=== PATIENT | female | born 1945 | race Caucasian/White ===

== ENCOUNTER → 2018-04-07 09:56 | Outpatient (CLI) | payer MEDICARE, OTHER, SELFPAY ==
[2018-04-07 12:30] LABS: Anion Gap 9 (5-15); BUN 13 mg/dL (7-18); BUN/Creat Ratio 15.9 RATIO (10-20); Chloride 107 mmol/L (98-107); Cholesterol 204 mg/dL (200); Creatinine, Serum 0.82 mg/dL (0.55-1.02); EST Glomerular Filtration Rate 73 mL/min (>60); Est Glom Filt Rate - Afr Amer 88 mL/min (>60); Glucose 80 mg/dL (74-106); High Density Lipoprotein 50 mg/dL; Potassium 4.2 mmol/L (3.5-5.1); Sodium Level 144 mmol/L (136-145); Triglycerides 165 mg/dL; Very Low Density Lipoprotein 33 mg/dL (5-40)
== END ==
PROVIDERS: Family Provider Family Medicine; PCP Family Medicine; Visit Provider Family Medicine
DX: I10 Essential (primary) hypertension (principal); E78.00 Pure hypercholesterolemia, unspecified
CPT/HCPCS: 36415; 80048; 80061

== ENCOUNTER → 2019-12-14 15:46 | Outpatient (CLI) | payer MEDICARE, OTHER, SELFPAY ==
[2019-12-14 17:43] LABS: Absolute Lymphocyte Count 2.31 X10^3/uL (0.83-4.51); Absolute Neutrophil Count 2.6 X10^3/uL (2.0-7.7); Basophil# 0.01 X10^3/uL; Basophil% 0.2 % (0-1); Eosinophil# 0.13 X10^3/uL; Eosinophils% 2.3 % (0-5); Hematocrit 42.4 % (37-47); Hemoglobin 14.1 g/dL (12.0-15.0); Lymphocyte # 2.31 X10^3/ul (4.0); Lymphocyte % 40.9 % (19-41); Mean Corp Hgb Conc 33.3 g/dL (32-36); Mean Corpuscular Hgb 30.8 pg (27.0-32.0); Mean Corpuscular Volume 92.6 fL (81-99); Mean Platelet Vol. 10.1 fl (6.2-12.0); Monocyte# 0.57 X10^3/uL; Monocyte% 10.1 % (0-10); NRBC Flagged by Analyzer 0 % (0-5); Neutrophil # 2.61 X10^3/uL (2.7-7.7); Neutrophil % 46.1 % (47-70); Platelet Count 228 K/mm3 (150-450); RBC Distribution Width CV 13.8 % (11.6-14.6); RBC Distribution Width SD 46.5 fl (35.1-43.9); Red Blood Count 4.58 M/mm3 (4.2-5.4); White Blood Count 5.7 K/mm3 (4.4-11.0)
[2019-12-14 18:18] LABS: Vitamin D,25 Hydroxy 75.6 ng/mL
[2019-12-14 18:28] LABS: ALB/GLOB Ratio 1.2 RATIO (0.9-2.4); AST(SGOT) 27 U/L (15-37); Alanine Aminotransfer ALT/SGPT 28 U/L (13-56); Alkaline Phosphatase 81 U/L (45-117); Anion Gap 5 (5-15); BUN 15 mg/dL (7-18); BUN/Creat Ratio 20.6 RATIO (10-20); Calcium,Total 9.4 mg/dL (8.5-10.1); Chloride 108 mmol/L (98-107); Cholesterol 224 mg/dL (200); Creatinine, Serum 0.73 mg/dL (0.55-1.02); EST Glomerular Filtration Rate 83 mL/min (>60); Est Glom Filt Rate - Afr Amer 101 mL/min (>60); Globulin 3.4 g/dL (2.2-4.2); Glucose 89 mg/dL (74-106); High Density Lipoprotein 41 mg/dL; Potassium 3.8 mmol/L (3.5-5.1); Protein, Total 7.4 g/dL (6.4-8.2); Sodium Level 141 mmol/L (136-145); Thyroid Stim Hormone (TSH) 1.41 uIU/mL (0.358-3.74); Triglycerides 307 mg/dL; Very Low Density Lipoprotein 61 mg/dL (5-40)
== END ==
PROVIDERS: PCP Family Medicine; Visit Provider Family Medicine
DX: I10 Essential (primary) hypertension (principal); E55.9 Vitamin D deficiency, unspecified; E78.00 Pure hypercholesterolemia, unspecified
CPT/HCPCS: 36415; 80053; 80061; 82306; 84443; 85025

== ENCOUNTER 2020-01-23 07:21 | Day surgery (SDC) | payer MEDICARE, OTHER, SELFPAY ==
[2020-01-22 12:57] LABS: Probe Check PASS; Specimen Processing Control PASS
[2020-01-23] VITALS (7 sets, daily range): BP systolic 121–147; BP diastolic 80–91; PULSE 67–74; RESP 16; TEMP 36.4–36.8; O2SAT 98–100; BMI 23.4
[2020-01-23] MEDS: Lactated Ringers 1,000 ML 100 ML IV (08:17)
--- NOTE | 2020-01-23 08:38 | PCM.HP.STD ---
Problem List (1) Screening for intestinal cancer Status: Acute History of Present Illness Date of Admission: 01/23/20 The patient is a 74 year old F who presents for screening colonoscopy. She has both a mother and a sister who had colon cancer. The patient herself is never previously had a colonoscopy. She denies bright red blood per rectum or melena. No abdominal pain. No weight loss. She claims that heart lungs are solid. Past Medical History Allergies No Known Allergies Allergy (Verified 01/22/20 12:47) Home Medications: Ambulatory Orders Medication Instructions Recorded Metoprolol Tartrate [Lopressor 50 mg PO BID 01/22/20 (Beta Sarah)] Smoking Status: Never smoker Tobacco Use: Non-smoker Review of Systems Constitutional: Denies: Anorexia, Chills, Fever HEENT: Denies: Difficulty Swallowing Cardiovascular: Denies: Chest Pain Respiratory: Denies: Cough Gastrointestinal: Denies: Abdominal Pain, Melena Endocrine: Denies: Change in Body Habitus VTE Information - Inpt Only VTE Present on Admission: No Patient Problems: Active and Suspected Problems Screening for intestinal cancer (Acute) - Physical Exam Vitals/I&O's: Vital Signs Temp Pulse Resp BP Pulse Ox 98.3 F 67 16 147/89 H 98 01/23/20 08:08 01/23/20 08:08 01/23/20 08:08 01/23/20 08:08 01/23/20 08:08 Oxygen Delivery Method Room Air Weight: 132 lb 4.438 oz Body Mass Index (BMI) 23.4 General: Alert, Oriented x3, Cooperative, No apparent distress Oral: Moist Mucosa Lungs: Clear to auscultation, Normal air movement Cardiovascular: Regular rate, Regular Rhythm Abdomen: Bowel Sounds Present, Soft, Non Tender Extremities: No Calf Tenderness Neurological: - - Normal cognition Psych/Mental Status: Normal Affect Laboratory Results 01/22/20 09:55: COVID-19 (BERENICE) Negative 01/23/20 08:55: COVID-19 (BERENICE) Cancelled Current Medications Lactated Ringer's () 1,000 mls @ 100 mls/hr IV .Q10H RICKI Last Admin: 01/23/20 08:17 Dose: 100 mls/hr Documented by: Assessment/Plan All Active Problems Screening for intestinal cancer (Acute) I recommended the patient a screening colonoscopy with possible biopsy or polypectomy is indicated. She has had an opportunity to ask and have questions answered. She presents via open access today. As noted she has no previous history of colonoscopy despite 2 direct family members with colon cancer. She presents via open access. We will proceed as noted Procedure Criteria Procedure Type: Elective COVID Risk Discussion: The surgeon/proceduralist and patient have discussed in detail the risk of exposure to and/or potential harm posed by the COVID-19 virus with having a surgery/procedure at this time versus the risk of delaying the surgery/procedure. It is not possible to know either the risk of delaying the surgery or procedure or chance of getting an infection with perfect accuracy, but a joint decision was made between the patient and the surgeon/proceduralist to proceed at this time with the scheduled surgery/procedure as indicated on the consent form.
--- NOTE | 2020-01-23 09:38 | OP.COLON_ITS ---
Patient Name: Rosaura Porter Procedure Date: 01/23/2020 8:32 AM Date of : 1945 Age: 74 Procedure: Colonoscopy Indications: Screening for colorectal malignant neoplasm Providers: Ty Rajan MD Medicines: See the Anesthesia note for documentation of the administered medications Patient Profile: Last Colonoscopy: none. The patient's first colonoscopy is today. Complications: No immediate complications. Procedure: Pre-Anesthesia Assessment: - Prior to the procedure, a History and Physical was performed, and patient medications and allergies were reviewed. The patient's tolerance of previous anesthesia was also reviewed. The risks and benefits of the procedure and the sedation options and risks were discussed with the patient. All questions were answered, and informed consent was obtained. Prior Anticoagulants: The patient has taken no previous anticoagulant or antiplatelet agents. ASA Grade Assessment: II - A patient with mild systemic disease. After reviewing the risks and benefits, the patient was deemed in satisfactory condition to undergo the procedure. After I obtained informed consent, the scope was passed under direct vision. Throughout the procedure, the patient's blood pressure, pulse, and oxygen saturations were monitored continuously. The Colonoscope was introduced through the anus and advanced to the cecum, identified by appendiceal orifice and ileocecal valve. The colonoscopy was performed without difficulty. The patient tolerated the procedure well. The quality of the bowel preparation was good. The ileocecal valve was photographed. Scope In: 9:19:44 AM Scope Withdrawal Time 0 hours 7 minutes 23 seconds Scope Out: 9:30:08 AM Total Procedure Duration Time 0 hours 10 minutes 24 seconds Findings: The digital rectal exam findings include non-thrombosed internal hemorrhoids and internal hemorrhoids that prolapse with straining, but require manual replacement into the anal canal (Grade III). Hemorrhoids were found on perianal exam. Scattered diverticula were found in the sigmoid colon and descending colon. The exam was otherwise without abnormality. Impression: - Non-thrombosed internal hemorrhoids and internal hemorrhoids that prolapse with straining, but require manual replacement into the anal canal (Grade III) found on digital rectal exam. - External hemorrhoids found on perianal exam. - Diverticulosis in the sigmoid colon and in the descending colon. - The examination was otherwise normal. - No specimens collected. Recommendation: - Discharge patient to home. - Resume previous diet. - Continue present medications. - Repeat colonoscopy in 5 years for surveillance because of mother and sister who both had colon cancer Procedure Code(s): --- Professional --- 07673, Colonoscopy, flexible; diagnostic, including collection of specimen(s) by brushing or washing, when performed (separate procedure) Diagnosis Code(s): --- Professional --- Z12.11, Encounter for screening for malignant neoplasm of colon K64.2, Third degree hemorrhoids K57.30, Diverticulosis of large intestine without perforation or abscess without bleeding CPT copyright 2017 [employer]. All rights reserved. The codes documented in this report are preliminary and upon auditing coder review may be revised to meet current compliance requirements. Ty Rajan MD 01/23/2020 9:37:27 AM This report has been signed electronically. Number of Addenda: 0 Note Initiated On: 01/23/2020 8:32 AM
--- NOTE | 2020-01-23 09:38 | OP.CCLET_ITS ---
01/23/2020 Catracho Dean [address] [place] [address] Re : Colonoscopy procedure for Rosaura Porter Dear Dr. Dean This procedure was performed on Thursday, January 23, 2020. My impressions and recommendations are as follows: Impressions : - Non-thrombosed internal hemorrhoids and internal hemorrhoids that prolapse with straining, but require manual replacement into the anal canal (Grade III) found on digital rectal exam. - External hemorrhoids found on perianal exam. - Diverticulosis in the sigmoid colon and in the descending colon. - The examination was otherwise normal. - No specimens collected. Recommendations : - Discharge patient to home. - Resume previous diet. - Continue present medications. - Repeat colonoscopy in 5 years for surveillance because of mother and sister who both had colon cancer My findings are described in the full procedure note, which is enclosed. If I can be of further assistance, please feel free to contact me at Doctor phone number(s): Work: . Sincerely, Ty Rajan MD 01/23/2020 9:37:27 AM This report has been signed electronically.
== END 2020-01-23 10:17 | disposition home or self-care (01) ==
LOC: EN 07:23 → AC 07:25
PROVIDERS: Physician Assistant; PCP Family Medicine; Referring Provider Family Medicine; Visit Provider Surgery
PROC: 0DJD8ZZ Inspection of Lower Intestinal Tract, Via Natural or Artificial Opening Endoscopic (ICD-10-PCS; CPT 45378; principal; 2020-01-23 08:55)
DX: Z12.11 Encounter for screening for malignant neoplasm of colon (principal); K57.30 Diverticulosis of large intestine without perforation or abscess without bleeding; K64.2 Third degree hemorrhoids; K64.4 Residual hemorrhoidal skin tags; Z80.0 Family history of malignant neoplasm of digestive organs; Z11.59 Encounter for screening for other viral diseases; I10 Essential (primary) hypertension; Z78.0 Asymptomatic menopausal state; Z79.899 Other long term (current) drug therapy
CPT/HCPCS: G0105; 87635; G2023; J7120; J2405; U0003

== ENCOUNTER 2020-02-13 08:44 | Day surgery (SDC) | payer MEDICARE, OTHER, SELFPAY ==
[2020-01-31 08:32] VITALS: BMI 23.4
--- NOTE | 2020-02-08 15:13 | EKG12_ITS ---
Test Reason : PRE OP Blood Pressure : / mmHG Vent. Rate : 073 BPM Atrial Rate : 073 BPM P-R Int : 208 ms QRS Dur : 074 ms QT Int : 388 ms P-R-T Axes : 049 -07 018 degrees QTc Int : 427 ms Normal sinus rhythm Nonspecific T wave abnormality Abnormal ECG Confirmed by NAKUL CONDE ([id number]), industrial editor NAVIN DEMPSEY ([id number]) on 02/12/2020 2:09:26 PM Referred By: Ty Rajan Confirmed By:NAKUL CONDE
[2020-02-08 16:05] LABS: Hematocrit 41.1 % (37-47); Hemoglobin 13.7 g/dL (12.0-15.0); Mean Corp Hgb Conc 33.3 g/dL (32-36); Mean Corpuscular Hgb 30.8 pg (27.0-32.0); Mean Corpuscular Volume 92.4 fL (81-99); Mean Platelet Vol. 9.9 fl (6.2-12.0); Platelet Count 215 K/mm3 (150-450); RBC Distribution Width CV 13.7 % (11.6-14.6); RBC Distribution Width SD 46.3 fl (35.1-43.9); Red Blood Count 4.45 M/mm3 (4.2-5.4); White Blood Count 5.4 K/mm3 (4.4-11.0)
[2020-02-08 16:54] LABS: Anion Gap 7 (5-15); BUN 16 mg/dL (7-18); Calcium,Total 8.6 mg/dL (8.5-10.1); Chloride 108 mmol/L (98-107); Creatinine, Serum 0.76 mg/dL (0.55-1.02); EST Glomerular Filtration Rate 79 mL/min (>60); Est Glom Filt Rate - Afr Amer 96 mL/min (>60); Glucose 80 mg/dL (74-106); Potassium 3.9 mmol/L (3.5-5.1); Sodium Level 143 mmol/L (136-145)
[2020-02-13] VITALS (13 sets, daily range): BP systolic 108–185; BP diastolic 74–109; PULSE 58–89; RESP 14–16; TEMP 36.2–36.9; O2SAT 97–100; BMI 23.1
[2020-02-13] MEDS: Lactated Ringers 1,000 ML 15 ML IV ×2 (09:28→12:41)
--- NOTE | 2020-02-13 10:14 | PCM.HP.BLA ---
Problem List (1) Internal bleeding hemorrhoids Status: Acute History and Physical Date of Admission: 02/13/20 Intake Visit Reasons: HEMORRHOIDS Chief Complaint: Hemorrhoids Fashion Supervisor Required: No Accompanied by: Is patient in pain?: No Allergies No Known Allergies Allergy (Verified 01/31/20 08:24) Medications Metoprolol Tartrate [Lopressor (Beta Sarah)] 50 mg PO BID 01/22/20 [History Confirmed 01/31/20] cholecalciferol (vitamin D3) 125 mcg (5,000 unit) capsule 125 mcg PO DAILY 01/31/20 [History Confirmed 01/31/20] fluticasone propionate 50 mcg/actuation nasal spray,suspension 1 spray INTRANASAL BID 01/31/20 [History Confirmed 01/31/20] glucosamine 750 mg-chondroitin 600 mg chewable tablet 2 tab PO BID tab 01/31/20 [History Confirmed 01/31/20] loratadine 10 mg tablet 10 mg PO DAILY 01/31/20 [History Confirmed 01/31/20] psyllium husk 0.4 gram capsule 0.4 g PO DAILY 01/31/20 [History Confirmed 01/31/20] PFSH Medical History (Updated 01/31/20 @ 08:[address] Ty Rajan MD) Internal bleeding hemorrhoids (Acute) Screening for intestinal cancer (Acute) Hemorrhoids (Acute) Surgical History (Updated 01/31/20 @ 08:21 by Melissa Contreras) History of arthroscopy of left knee (Acute) History of tubal ligation (Acute) Family History (Updated 01/31/20 @ 08:22 by Melissa Contreras) Mother Colon cancer Cancer lung cancer Hypertension High cholesterol Father Diabetes Hypertension CVA (cerebral vascular accident) Social History (Updated 01/31/20 @ 08:[address] Ty Rajan MD) Smoking Status: Never smoker alcohol intake: never substance use type: does not use HPI HPI HPI: ROSAURA FULLER, is a 74 F who presents to the office today for who presents today for further discussion regarding prolapsing and bleeding internal hemorrhoids. It is of note that her says that I have assisted him over the years with 2 different procedures. The second procedure was stimulated by him lifting a heavy object and then thrombosing and prolapsing hemorrhoid. In any case he felt that he did well with the surgical procedure. She is claiming that she will have tissue prolapse. She will have bleeding. She can never be quite sure when it is going to occur. She has not had any previous surgical hemorrhoid procedures. I have just recently performed a colonoscopy for her on January 23, 2020. Findings were diverticulosis and hemorrhoids. Next routine exam recommended in 5 years because of mother and sister both who had colon cancer. [facility] Medical Records Department [address] [place] [address] Colonoscopy Report MR#: [id number]:[id number] Name:ROSAURA FULLER LEERep #:[id number] : [id number]: Ty Rajan MD PCP:Dr. Catracho Dean MD [place] [facility] [place] Patient Name: Rosaura Fuller Procedure Date: 01/23/2020 8:32 AM Date of : 1945 Age: 74 Procedure: Colonoscopy Indications: Screening for colorectal malignant neoplasm Providers: Ty Rajan MD Medicines: See the Anesthesia note for documentation of the administered medications Patient Profile: Last Colonoscopy: none. The patient's first colonoscopy is today. Complications: No immediate complications. Procedure: Pre-Anesthesia Assessment: - Prior to the procedure, a History and Physical was performed, and patient medications and allergies were reviewed. The patient's tolerance of previous anesthesia was also reviewed. The risks and benefits of the procedure and the sedation options and risks were discussed with the patient. All questions were answered, and informed consent was obtained. Prior Anticoagulants: The patient has taken no previous anticoagulant or antiplatelet agents. ASA Grade Assessment: II - A patient with mild systemic disease. After reviewing the risks and benefits, the patient was deemed in satisfactory condition to undergo the procedure. After I obtained informed consent, the scope was passed under direct vision. Throughout the procedure, the patient's blood pressure, pulse, and oxygen saturations were monitored continuously. The Colonoscope was introduced through the anus and advanced to the cecum, identified by appendiceal orifice and ileocecal valve. The colonoscopy was performed without difficulty. The patient tolerated the procedure well. The quality of the bowel preparation was good. The ileocecal valve was photographed. Scope In: 9:19:44 AM Scope Withdrawal Time 0 hours 7 minutes 23 seconds Scope Out: 9:30:08 AM Total Procedure Duration Time 0 hours 10 minutes 24 seconds Findings: The digital rectal exam findings include non-thrombosed internal hemorrhoids and internal hemorrhoids that prolapse with straining, but require manual replacement into the anal canal (Grade III). Hemorrhoids were found on perianal exam. Scattered diverticula were found in the sigmoid colon and descending colon. The exam was otherwise without abnormality. Impression: - Non-thrombosed internal hemorrhoids and internal hemorrhoids that prolapse with straining, but require manual replacement into the anal canal (Grade III) found on digital rectal exam. - External hemorrhoids found on perianal exam. - Diverticulosis in the sigmoid colon and in the descending colon. - The examination was otherwise normal. - No specimens collected. Recommendation: - Discharge patient to home. - Resume previous diet. - Continue present medications. - Repeat colonoscopy in 5 years for surveillance because of mother and sister who both had colon cancer Procedure Code(s): --- Professional --- 76542, Colonoscopy, flexible; diagnostic, including collection of specimen(s) by brushing or washing, when performed (separate procedure) Diagnosis Code(s): --- Professional --- Z12.11, Encounter for screening for malignant neoplasm of colon K64.2, Third degree hemorrhoids K57.30, Diverticulosis of large intestine without perforation or abscess without bleeding CPT copyright 2017 [employer]. All rights reserved. The codes documented in this report are preliminary and upon link and link knitting machine operator review may be revised to meet current compliance requirements. Ty Rajan MD 01/23/2020 9:37:27 AM This report has been signed electronically. Number of Addenda: 0 Note Initiated On: 01/23/2020 8:32 AM 01/23/20 0937 Date HPI HPI HPI: ROSAURA FULLER, is a 74 F who presents to the office today for ROS General General: No weight change, appetite, fatigue, colon cancer, breast cancer or weakness HEENT HEENT: No difficulty swallowing, eye injury, eye surgery, swollen glands or hoarseness Endo Endocrine: No thyroid disease, diabetes mellitus, thyroid cancer, Hair loss, heat intolerance or cold intolerance Skin Skin: No rash or changing moles Breast Breast: No left breast lump, right breast lump, nipple discharge, breast pain, abnormal mammogram, abnormal US or breast enlargement Musc Musculoskeletal: No back problems, arthritis, rheumatoid arthritis, gout or joint pain Cardio Cardiovascular: No murmur, pacemaker, heart disease, atrial fibrillation, high blood pressure, heart attack, heart stent, palpitations, shortness of breat with exertion or chest pain Psych Psychiatric: No depression, anxiety or hearing voices Resp Respiratory: No shortness of breath, No sleep apnea, No cough, No COPD, No asthma, No emphysema, No wheezing Gastro Gastrointestinal: No abdominal pain, No nausea or vomiting, No diarrhea, No constipation, No blood in stool, No acid reflux, Yes hemorrhoids, No ulcers, No gallbladder problem, No black,tarry stools Dominik Hematologic: No blood thinners, No blood disorders, No bleeding, No anemia, No blood clots Neuro Neurologic: No system reviewed and no additional complaints, except as docu, No as per HPI, No abnormal walking, No abnormal hearing, No abnormal movements, No abnormal speech, No behavioral changes, No burning sensations, No confusion, No seizure-like activity, No unsteadiness, No dizziness, No localized weakness, No frequent falls, No headache(s), No lack of coordination, No loss of vision, No memory loss, No numbness, No other visual disturbances, No radiating pain, No restless legs, No sensory deficit, No fainting, No tingling, No tremor(s), No weakness, No other Exam Const General: cooperative, healthy appearing, comfortable, no acute distress Nutritional Appearance: average body habitus Orientation: alert, awake [facility] Head: normal to inspection Chest Breast Palpation: No nipple discharge Resp Effort & Inspection: normal respiratory effort Auscultation: clear to auscultation bilaterally Cardio Rate: regular rate Heart Sounds: no murmurs GI Palpation: soft, no hepatosplenomegaly Auscultation: normal bowel sounds Neuro Cognition: normal cognition Extrem General: no calf tenderness Psych Affect: normal affect Assessment & Plan Problems 1. Internal bleeding hemorrhoids K64.8 Plan We had an extensive discussion today regarding treatment options for prolapsing bleeding internal hemorrhoids. I extensively discussed particularly benefits risk complications alternatives of a surgical hemorrhoidectomy compared and contrasted to a staple technique. She has had an opportunity to ask and have questions answered. She has been taking Metamucil for 30 years. At the completion of the discussion she has elected to pursue a surgical hemorrhoidectomy. She has had an opportunity to ask and have questions answered. We will schedule and proceed at her discretion. Ty Rajan M.D., F.A.C.S. Coding Level of Care Code Off vis,est,level 2 Diagnoses Internal bleeding hemorrhoids K64.8 I have re-examined the patient. There are no clinical changes since date of exam. Procedure Criteria Procedure Type: Elective COVID Risk Discussion: The surgeon/proceduralist and patient have discussed in detail the risk of exposure to and/or potential harm posed by the COVID-19 virus with having a surgery/procedure at this time versus the risk of delaying the surgery/procedure. It is not possible to know either the risk of delaying the surgery or procedure or chance of getting an infection with perfect accuracy, but a joint decision was made between the patient and the surgeon/proceduralist to proceed at this time with the scheduled surgery/procedure as indicated on the consent form.
--- NOTE | 2020-02-13 10:36 | DCINST_ITS ---
Discharge Diet: No Restrictions Discharge Activity: Return to Normal Activity, May Not Drive - while you are taking narcotic pain medications. Do not drive, work with heavy equipment or sign legal documents for 24 hours after your surgery. Additional Activity Instructions:: You may utilize a daily fiber supplement in the form of Metamucil or Citrucel or FiberCon or Benefiber. I believe that the powder works better than the capsules. A large tablespoon in with fluid or juice daily. This needs to be continued for life. You may utilize mineral oil 30 cc or 1 ounce mixed in juice or food daily for 5 to 7 days. [id number] pain medicine in the form of Tylenol or acetaminophen or ibuprofen or Advil or Aleve or generic is encouraged. A small prescription of her narcotic pill will be provided. I would not eat any constipating foods like cheese. I encourage good fluid intake. You will find that sitz baths sitting at a warm tub of soapy water helps for comfort. It will also help with hygiene after any bowel movement. You may utilize a female hygiene pad for any mucus or bloody drainage. Allergies/Adverse Reactions: Allergies No Known Allergies Allergy (Verified 02/05/20 09:05) Medications to take at Discharge Metoprolol Tartrate [Lopressor (Beta Sarah)] 50 mg PO BID 01/22/20 cholecalciferol (vitamin D3) 125 mcg (5,000 unit) capsule 125 mcg PO DAILY 01/31/20 fluticasone propionate 50 mcg/actuation nasal spray,suspension 1 spray INTRANASAL BID 01/31/20 glucosamine 750 mg-chondroitin 600 mg chewable tablet 2 tab PO BID tab 01/31/20 loratadine 10 mg tablet 10 mg PO DAILY 01/31/20 psyllium husk 0.4 gram capsule 0.4 g PO DAILY 01/31/20 Orders to be completed after discharge: 12 Lead EKG [[facility]] Time Frame: 02/05/20, Facility: [facility], Location: Cardiovascular Services Primary Care Physician: Catracho Dean MD [Primary Care Provider] - Test Results: Test results from this visit will be discussed in further detail at your follow- up appointment, if applicable. Please Follow Up With: Ty Rajan MD - [phone] When: Plan to have a follow up approximately 3 weeks after surgery.
[2020-02-13] MEDS: Lubricating Jelly 60 GM Tube 30 GM TOPICAL (10:50)
--- NOTE | 2020-02-13 11:00 | HEM_PTH ---
PATIENT: LEON FULLER [place] [facility] [place][id number] AGE/SX: 74/F ROOM: RE02/13/[address]: Dr. Ty Rajan MD : 1945 BED: DIS: 02/13/2020 SPEC #: [id number] RECD: 02/13/20 12:25 STATUS: NIC RETrinidad #: [id number] GURJIT: 02/13/20 11:[address]: Ty Rajan DEPT: SURGICAL PATHOLOGY RECD BY: Erik Varela ENTERED: 02/14/20 09:12 SP TYPE: HEMORRHOID OTHR DR: Dr. Catracho Dean MD Tissues: HEMORRHOIDS Procedures: Surgery Specimen Level III HEADER OPERATION: Hemorrhoidectomy PRE-OP DIAGNOSIS: Internal bleeding hemorrhoids TISSUE SUBMITTED: Hemorrhoids MICROSCOPIC DIAGNOSIS Hemorrhoids, hemorrhoidectomy: Submucosal vascular ectasia and thrombosis consistent with hemorrhoids. AM:bridgette 02/15/20 MICROSCOPIC DESCRIPTION Slides are reviewed. GROSS DESCRIPTION Received in fixative is one container labeled with the patient's name and designated hemorrhoids. The specimen consists of three variable sized pieces of congested, mucosal tissue measuring in aggregate 4 x 3 x 1.5 cm. Sections reveal congested and hemorrhagic cut surfaces. Sketch Liner sections are submitted in one cassette. / SJ:bridgette 02/14/20 TC:5 CPT: 45888
[2020-02-13] MEDS: Dibucaine 30 GM Tube 1 APPLIC (11:21)
[2020-02-13] MEDS: Bupivacaine Mpf 0.5% 30 ML VIAL (11:25)
[2020-02-13] MEDS: BUPIVACAINE LIPOSOME/PF 20 ML VIAL OPERA.SITE (11:25)
--- NOTE | 2020-02-13 11:31 | OP.PCM_ITS ---
Problem List (1) Internal bleeding hemorrhoids Status: Acute Report of Operation Date of Procedure: 02/13/20 Pre-Operative Diagnosis: Prolapsing bleeding internal hemorrhoids Post-Operative Diagnosis: Same Surgery/Procedure Performed:: Complex surgical hemorrhoidectomy Description of Surgical Findings:: Timeout and informed consent was obtained. 74-year-old female was taken to the operating room and placed supine on the table. She underwent general endotracheal intubation anesthesia. She was then placed prone jackknife with careful shoulder and pelvic roll. Clindamycin 900 mg were given intravenously. Placed in a jackknife position with careful knee padding. Buttock strapping was performed. The perineum were sterilely prepped draped with Betadine. Inspection revealed to significant stalks of hemorrhoids right 2 o'clock position right 4 o'clock position and additional on the left at the 9 o'clock position. Started at right 2 o'clock position placed the apical suture of 2-0 chromic Mr. sharp scalpel to excise the external component using a moderate scalpel to complete the dissection. Great care was taken to inspect for the sphincter mechanism and preserve it. Then approximated the mucosa with a running locking 2-0 chromic. I reinforced the apical suture with a yjcbah-[id number]-vczqx suture of 0 Vicryl. I performed this for the additional 2 sets of hemorrhoids. There was an additional tissue right mid lateral internally and simply treated that with harmonic scalpel and a uitqdo-qu-kyebj suture of 2-0 chromic. [place] that I had remove the vast majority of the hemorrhoidal disease. The perianal tissue was anesthetized with Exparel 20 cc mixed with 30 cc of 0.5% Marcaine. I then use dibucaine soaked ointment on a Vaseline gauze inserted back. Dry cover dressing. Sponge and instrument and needle counts were reported to the surgeon to be correct. Blood loss minimal. Specimens hemorrhoids. Drains none. Blood loss minimal. The patient was taken to the recovery room in satisfactory vision without apparent complication Ty Rajan M.D., F.A.C.S. Type of Anesthesia:: General Anesthesiologist: Mookie Perez
[2020-02-13] MEDS: Acetaminophen 325 MG Tablet 650 MG PO (16:02)
[2020-02-13] MEDS: Tamsulosin HCl 0.4 MG Capsule PO (16:17)
== END 2020-02-13 17:15 | disposition home or self-care (01) ==
LOC: SDC 08:44 → AC 08:45
PROVIDERS: Anesthesiology; PCP Family Medicine; Referring Provider Surgery; Visit Provider Surgery
PROC: (CPT 46260; principal; 2020-02-13 10:45)
DX: K64.2 Third degree hemorrhoids (principal); Z11.59 Encounter for screening for other viral diseases; K64.4 Residual hemorrhoidal skin tags; Z79.899 Other long term (current) drug therapy; K57.30 Diverticulosis of large intestine without perforation or abscess without bleeding; Z80.0 Family history of malignant neoplasm of digestive organs; I10 Essential (primary) hypertension
CPT/HCPCS: 00902; 46260; 36415; 80048; 85027; 87635; 88304; 93005; G2023; J7120; J2405; U0003

== ENCOUNTER 2020-11-24 15:26 | Emergency (ER) | payer MEDICARE, OTHER, SELFPAY ==
[2020-02-13 09:07] VITALS: BMI 23.1
[2020-11-24 15:26] VITALS: BP 155/94; PULSE 84; RESP 15; TEMP 37; O2SAT 98; BMI 24.2
--- NOTE | 2020-11-24 15:37 | ED.VIS.INJ ---
History of Present Illness Chief Complaint: Fall Informant: Patient, Family Onset: Today - JPTA Mechanism/Context: Blunt Injury, Fall Quality of Pain: Aching Location: left shoulder Current Severity: Moderate Maximum Severity: Severe Worsened by: any movement Relieved by: remaining still in position of comfort LUE Associated Symptoms: Loss of function - LUE. Negative for: Parasthesias, Weakness, Inability to ambulate, Loss of consciousness, Amnesia Narrative: Patient was on a stepstool and accidentally fell off, stating that she injured her left upper extremity mostly at the elbow with immediate pain in the shoulder and loss of function of the arm. She states it hurts everywhere in her shoulder and she cannot move it at all. She is right-hand dominant. She bumped her right forehead but no other injuries and no pain there at her forehead. Takes no antiplatelet or anticoagulant medications. No headache, focal neurologic symptoms, vision changes, neck or back pain. - Past Medical History (1) Hypertension Status: Chronic Past Medical History - Allergies and Home Meds Allergies/Adverse Reactions: Allergies No Known Allergies Allergy (Verified 11/24/20 15:30) Primary Care Physician: Jaden Monroy DO [STAFF PHYSICIAN] - (Call for appointment to be seen this week) Lives: Spouse/ Significant Other Smoking Status: Never smoker Review of Systems General: Denies: Chills, Fever, Sweats Eyes: Denies: Visual changes - bilaterally, Diplopia ENT: Denies: Rhinorrhea, Sore throat Cardiovascular: Denies: Chest pain, Palpitations Respiratory: Denies: Dyspnea, Cough, Dyspnea on exertion Gastrointestinal: Denies: Abdominal pain, Nausea, Vomiting, Diarrhea, Melena, Hematochezia Genitourinary: Denies: Dysuria, Hematuria, Frequency Musculoskeletal: Reports: Extremity Pain. Denies: Neck pain, Back pain, Swelling Skin: Denies: Rash, Wounds Neurological: Denies: Headache, Weakness, Numbness Physical Exam Vital Signs/Narrative: Vital Signs Temp Pulse Resp BP Pulse Ox 11/24/20 15:26 98.6 F 84 15 155/94 H 98 Inital Vital Signs reviewed: Yes General: Well nourished, Well developed, - - Well-appearing no distress GCS 15 Head: Normocephalic, Trauma - Small minor contusion right forehead, nontender, no crepitance or depression, no hematoma Eyes: Perrl, EOMI ENT: TM's clear, No hemotympanum or drainage, No trauma. Negative for: Otorrhea, Nasal trauma Neck: Nontender, Full ROM Cardiovascular: Regular rate, Regular rhythm, No murmurs Respiratory: No distress, CTA bilaterally, Chest nontender Abdomen: Soft, Nontender, Nondistended, Normal bowel sounds Back: Nontender. Negative for: Spinal Tenderness Extremeties: Left shoulder is swollen versus deformed anteriorly. Holding in position of comfort, abducted, unable to move anywhere. Neurovascularly intact distally including axillary nerve distribution. Nontender at the elbow and wrist, where she is able to range okay. Skin: Normal color, No rash, Trauma - Minor contusion right upper forehead, skin intact there and left upper extremity Neurological: Alert, Oriented x3, Cranial nerves II-XII grossly intact, Normal Strength, Normal Sensation, Normal Gait Psychological: Normal affect, Normal Mood Diagnostic/Tx/Re-eval Clinical Impression(s) from Imaging Studies Shoulder X-Ray 11/24/20 15:40 FINDINGS: There is a presumed impacted fracture of the humeral head/neck. However it is not well seen due to overlap between multiple bones in all projections. Glenohumeral joint is located. Clavicle and AC joint are normal. RAD/Shoulder min 2 Views IMPRESSION: Presumed humeral head/neck fracture. Recommend additional views for more definitive evaluation especially if definitive therapy is contemplated. Electronically Signed: Lea Morse MD at 15:53 EDT Tel , Service support , - Medical Decision Making My interpretation 3 view x-ray series of the left shoulder shows a displaced fracture at approximately the surgical neck of the left proximal humerus without dislocation of the humeral head. Patient was given [place], placed in a sling, referred to orthopedics as an outpatient, she lives with her spouse and has help and she is comfortable with that plan. Her bruise to the scalp/forehead is very minor and I do not think she needs any imaging of her head, we discussed reasons to return. Advised to ice her shoulder. ED Disposition - Plan for ED Patient: Disposition: Home or Assisted Living Diagnosis: Closed fracture of proximal end of left humerus Instructions: ED Fracture, Shoulder Prescriptions: Hydrocodone Bitart/Apap 5-325 [[place] 5MG-325MG] 1 tablet PO Q4H PRN PRN 2 Days #10 tab PRN Reason: Pain Transmission Status: Received by [id number] Referrals: Jaden Monroy DO [STAFF PHYSICIAN] - (Call for appointment to be seen this week)
--- NOTE | 2020-11-24 15:40 | RAD_ITS ---
STUDY: X-RAY - LEFT SHOULDER REASON FOR EXAM: Female, 75 years old. injury TECHNIQUE: 3 view(s) of the shoulder. COMPARISON: None. FINDINGS: There is a presumed impacted fracture of the humeral head/neck. However it is not well seen due to overlap between multiple bones in all projections. Glenohumeral joint is located. Clavicle and AC joint are normal. RAD/Shoulder min 2 Views IMPRESSION: Presumed humeral head/neck fracture. Recommend additional views for more definitive evaluation especially if definitive therapy is contemplated. Electronically Signed: Lea Morse MD at 15:53 EDT Tel , Service support ,
[2020-11-24 15:54] VITALS: RESP 15
[2020-11-24] MEDS: HYDROcodone Bitartrate/Apap 5/325 Tablet PO (15:56)
== END 2020-11-24 16:04 | disposition home or self-care (01) ==
LOC: ED 15:55
PROVIDERS: Emergency Provider Emergency Medicine; PCP Family Medicine
DX: S42.202A Unspecified fracture of upper end of left humerus, initial encounter for closed fracture (principal); W17.89XA Other fall from one level to another, initial encounter
CPT/HCPCS: 73030; 99283

== ENCOUNTER 2021-01-15 15:00 | Outpatient (RCR) | payer MEDICARE, OTHER, SELFPAY ==
[2020-12-11 12:54] VITALS: BMI 24.2
--- NOTE | 2021-01-07 16:35 | HP.PTEVAL_ITS ---
Patient's Visit Information LEON FULLER is a 75 year old F referred to Physical Therapy by Dr. Jaden Monroy DO with a diagnosis of L shoulder fracture 11/22/20. Date of Evaluation: 01/07/21 Physical Therapist: Khai Martinez, PT, ATC - Visit Plan Frequency: 2-3x /Week Duration: 4-6 Weeks Plan: L shoulder ROM exercises for 4 weeks to include PROM/AROM and mobs, then progress to strengthening at that time to include rot cuff strengthening and scap stab ex's. - Subjective DOI: 11/24/20. Pt reports she was standing on a step stool when she fell off landing on Her L UE. Pt reports she fractured her L shoulder in 2 places. Pt reports she was placed into a sling for the past 5 weeks and has just started to not wear one. Pt reports she feels like the bone is healed now, but she feels weak and stiff in L UE. Pt reports she has difficulty sleeping at night secondary to pain. No tingling or numbness in L UE. Pt reports she is R hand dominant. Pt reports difficulty with overhead lifting activity and most IADL's secondary to pain and stiffness. 1/10 pain at rest, 8/10 at worst (just doing house chores) - Pain L shoulder Fx Pain Intensity (Out of 10): 1 Pain Intensity Range: 8 - Objective Neuro: B UE sensation is WNL to light touch. B bicepital reflex= 2/3. ROM: R shoulder flex= 170, abd= 160, ER= 65, IR WNL; L shoulder flex= 90, abd= 65, ER= 45, IR WNL. MMT: L shoulder is 2-/5, and R shoulder is 5/5 throughout. Observation: No obvious deformity at this time. Discoloration is gone. - Goals Goal 1:: Decrease L shoulder pain x 50% to aid with sleep Goal Time Frame: 4-6 Weeks Goal 2:: Increase L shoulder flex and abd ROM x 40 degrees to aid with overhead lifting Goal Time Frame: 4-6 Weeks Goal 3:: Increase L shoulder strength x 1 grade to aid with IADL's Goal Time Frame: 4-6 Weeks Goal 4:: I with HEP Goal Time Frame: 4-6 Weeks - Rehabilitation Potential Physical Therapy Diagnosis: Pt has L shoulder pain, weakness, and limited ROM secondary to L humeral Fx Rehabilitation Potential: Good - Anticipated Interventions Patient/Client Instruction: Educate patient on: Condition, Plan of Care For the Purpose of:: To improve self management Therapeutic Exercise to Include: Strength training, Flexibilty training, Passive ROM, Active ROM, Scapular Strength/Stabilization For the Purpose of:: To decrease pain, To increase ROM, To improve muscle performance and motor function Cryotherapy (ice pack, ice massage): Yes For the Purpose of:: To decrease pain Thank you for the opportunity to evaluate your patient. For Medicare and Medicare HMO plans, please review the plan of care and approve it. It will need to be FAXED BACK to us at [phone] for Medicare purposes. For Medicare only, by signing this I certify the plan of care. Please let me know if there are questions or concerns regarding this plan of care. Physician Sig nature: Date:
--- NOTE | 2021-03-03 12:37 | HP.PT.NRP ---
LEON FULLER was seen in my office for initial evaluation on 01/07/21. The following Plan of Care was established for this patient: Initial Frequency: 2-3x /Week Initial Duration: 4-6 Weeks Patient/Client Instruction: Educate patient on: Condition, Plan of Care For the Purpose of:: To improve self management Therapeutic Exercise to Include: Strength training, Flexibilty training, Passive ROM, Active ROM, Scapular Strength/Stabilization For the Purpose of:: To decrease pain, To increase ROM, To improve muscle performance and motor function Cryotherapy (ice pack, ice massage): Yes For the Purpose of:: To decrease pain This patient was last seen in our office . Pertinent comments regarding their Physical therapy will appear below: Pt was treated for 2 PT visits for R shoulder pain through the date of 01/15/2021. Pt has not returned through this date and is discharged at this time. At this point I will be discontinuing this patient from physical therapy. I would be happy to see this patient again in the future if found appropriate by the physician. Thank you! Khai Martinez, PT, ATC Balance/Gait/Functional tests - Balance/Special Test Scores Quick DASH Score: [phone]
== END 2021-01-15 19:00 | disposition home or self-care (01) ==
LOC: PT 15:00
PROVIDERS: PCP Family Medicine; Referring Provider Orthopaedic Surgery; Visit Provider Orthopaedic Surgery
DX: S42.212D Unspecified displaced fracture of surgical neck of left humerus, subsequent encounter for fracture with routine healing (principal); S42.252D Displaced fracture of greater tuberosity of left humerus, subsequent encounter for fracture with routine healing; X58.XXXD Exposure to other specified factors, subsequent encounter
CPT/HCPCS: 97110; 97161

== ENCOUNTER → 2021-03-31 15:32 | Outpatient (CLI) | payer MEDICARE, OTHER, SELFPAY ==
[2021-03-31 17:44] LABS: Hematocrit 42.2 % (37-47); Hemoglobin 14.5 g/dL (12.0-15.0); Mean Corp Hgb Conc 34.4 g/dL (32-36); Mean Corpuscular Hgb 30.5 pg (27.0-32.0); Mean Corpuscular Volume 88.8 fL (81-99); Mean Platelet Vol. 10.3 fl (6.2-12.0); Platelet Count 236 K/mm3 (150-450); RBC Distribution Width CV 13.7 % (11.6-14.6); RBC Distribution Width SD 44.8 fl (35.1-43.9); Red Blood Count 4.75 M/mm3 (4.2-5.4); White Blood Count 5.5 K/mm3 (4.4-11.0)
[2021-03-31 17:50] LABS: Anion Gap 3 (5-15); BUN 15 mg/dL (7-18); BUN/Creat Ratio 20.4 RATIO (10-20); Chloride 109 mmol/L (98-107); Creatinine, Serum 0.73 mg/dL (0.55-1.02); EST Glomerular Filtration Rate 82 mL/min (>60); Est Glom Filt Rate - Afr Amer 100 mL/min (>60); Glucose 103 mg/dL (74-106); Potassium 3.3 mmol/L (3.5-5.1); Sodium Level 142 mmol/L (136-145)
== END ==
PROVIDERS: PCP Family Medicine; Referring Provider Family Medicine; Visit Provider Nurse Practitioner Family
DX: I10 Essential (primary) hypertension (principal)
CPT/HCPCS: 36415; 80048; 85027

== ENCOUNTER → 2021-04-30 12:06 | Outpatient (CLI) | payer MEDICARE, OTHER, SELFPAY ==
[2021-04-30 12:13] LABS: Bacteria 0 SEEN /hpf (None Seen); Mucous, Urine 0 SEEN /hpf (<or=2+); Red Blood Cells-Urine 0 SEEN /hpf (0-5); Squamous Epithelial Cells - UA 0 SEEN /hpf (5-10)
[2021-04-30 15:21] LABS: Absolute Lymphocyte Count 2.35 X10^3/uL (0.83-4.51); Absolute Neutrophil Count 2.4 X10^3/uL (2.0-7.7); Basophil# 0.03 X10^3/uL; Basophil% 0.6 % (0-1); Eosinophil# 0.11 X10^3/uL; Eosinophils% 2.1 % (0-5); Hematocrit 42.1 % (37-47); Lymphocyte # 2.35 X10^3/ul (0.83-4.51); Lymphocyte % 44.5 % (19-41); Mean Corp Hgb Conc 33.3 g/dL (32-36); Mean Corpuscular Hgb 30.2 pg (27.0-32.0); Mean Corpuscular Volume 90.9 fL (81-99); Mean Platelet Vol. 10.3 fl (6.2-12.0); Monocyte# 0.41 X10^3/uL; Monocyte% 7.8 % (0-10); NRBC Flagged by Analyzer 0 % (0-5); Neutrophil # 2.36 X10^3/uL (2.7-7.7); Neutrophil % 44.6 % (47-70); Platelet Count 232 K/mm3 (150-450); RBC Distribution Width SD 46.4 fl (35.1-43.9); Red Blood Count 4.63 M/mm3 (4.2-5.4); White Blood Count 5.3 K/mm3 (4.4-11.0)
[2021-04-30 15:26] LABS: Color, Urine Yellow (Yellow); Glucose, Dipstick Normal (Normal); Ketone-Dipstick Negative (Negative); Leukocyte Esterase-Dipstick 25 /ul (Negative); Nitrite-Dipstick Negative (Negative); Occult Blood-Urine Negative /ul (Negative); Protein-Dipstick Negative (Negative); Specific Gravity, Urine 1.015 (1.002-1.030); Urine Bilirubin Dipstick Negative (Negative); Urine Clarity Clear (Clear); Urine Urobilinogen Normal (Normal)
[2021-04-30 15:28] LABS: White Blood Cells 0-5 SEEN /hpf (0-5)
[2021-04-30 15:34] LABS: Vitamin D,25 Hydroxy 75.8 ng/mL
[2021-04-30 15:42] LABS: ALB/GLOB Ratio 1.1 RATIO (0.9-2.4); AST(SGOT) 21 U/L (15-37); Alanine Aminotransfer ALT/SGPT 26 U/L (13-56); Alkaline Phosphatase 90 U/L (45-117); Anion Gap 3 (5-15); BUN 20 mg/dL (7-18); BUN/Creat Ratio 28.5 RATIO (10-20); Calcium,Total 9.3 mg/dL (8.5-10.1); Chloride 110 mmol/L (98-107); Cholesterol 222 mg/dL (200); EST Glomerular Filtration Rate 87 mL/min (>60); Est Glom Filt Rate - Afr Amer 105 mL/min (>60); Globulin 3.6 g/dL (2.2-4.2); Glucose 91 mg/dL (74-106); High Density Lipoprotein 43 mg/dL; Potassium 3.9 mmol/L (3.5-5.1); Protein, Total 7.6 g/dL (6.4-8.2); Sodium Level 140 mmol/L (136-145); Triglycerides 292 mg/dL; Very Low Density Lipoprotein 58 mg/dL (5-40)
== END ==
PROVIDERS: PCP Family Medicine; Referring Provider Family Medicine; Visit Provider Family Medicine
DX: E78.00 Pure hypercholesterolemia, unspecified (principal); E55.9 Vitamin D deficiency, unspecified; I10 Essential (primary) hypertension
CPT/HCPCS: 36415; 80053; 80061; 81001; 82306; 85025

== ENCOUNTER → 2021-12-17 | Outpatient (CLI) | payer MEDICARE, OTHER, SELFPAY | END | disposition home or self-care (01) | PROVIDERS: PCP Family Medicine; Referring Provider Nurse Practitioner Family; Visit Provider Nurse Practitioner Family | DX: U07.1 COVID-19 (principal) | CPT/HCPCS: 87635; U0003; U0005 ==

== ENCOUNTER → 2022-03-11 | Outpatient (CLI) | payer MEDICARE, OTHER, SELFPAY ==
[2022-03-11 14:10] LABS: Bacteria 0 SEEN /hpf (None Seen); Mucous, Urine 0 SEEN /hpf (<or=2+)
[2022-03-11 14:42] LABS: Color, Urine Yellow (Yellow); Glucose, Dipstick Normal (Normal); Ketone-Dipstick Negative (Negative); Leukocyte Esterase-Dipstick 25 /ul (Negative); Nitrite-Dipstick Negative (Negative); Occult Blood-Urine 10 /ul (Negative); Protein-Dipstick Negative (Negative); Urine Bilirubin Dipstick Negative (Negative); Urine Clarity Sl. Cloudy (Clear); Urine Urobilinogen Normal (Normal)
[2022-03-11 14:47] LABS: Red Blood Cells-Urine 0-5 SEEN /hpf (0-5); Squamous Epithelial Cells - UA 0-5 SEEN /hpf (5-10); White Blood Cells 0-5 SEEN /hpf (0-5)
[2022-03-11 14:52] LABS: Absolute Lymphocyte Count 1.98 X10^3/uL (0.83-4.51); Absolute Neutrophil Count 2.2 X10^3/uL (2.0-7.7); Basophil# 0.02 X10^3/uL; Basophil% 0.4 % (0-1); Eosinophil# 0.14 X10^3/uL; Eosinophils% 2.9 % (0-5); Hematocrit 41.4 % (37-47); Lymphocyte # 1.98 X10^3/ul (0.83-4.51); Mean Corp Hgb Conc 33.8 g/dL (32-36); Mean Corpuscular Hgb 30.8 pg (27.0-32.0); Mean Platelet Vol. 9.8 fl (6.2-12.0); Monocyte# 0.49 X10^3/uL; Monocyte% 10.1 % (0-10); NRBC Flagged by Analyzer 0 % (0-5); Neutrophil # 2.18 X10^3/uL (2.7-7.7); Neutrophil % 45.2 % (47-70); Platelet Count 232 K/mm3 (150-450); RBC Distribution Width CV 13.7 % (11.6-14.6); RBC Distribution Width SD 46.4 fl (35.1-43.9); Red Blood Count 4.55 M/mm3 (4.2-5.4); White Blood Count 4.8 K/mm3 (4.4-11.0)
[2022-03-11 15:45] LABS: Vitamin D,25 Hydroxy 73.7 ng/mL
[2022-03-11 15:46] LABS: ALB/GLOB Ratio 1.1 RATIO (0.9-2.4); AST(SGOT) 26 U/L (15-37); Alanine Aminotransfer ALT/SGPT 28 U/L (13-56); Albumin, Serum 3.9 g/dL (3.2-5.0); Alkaline Phosphatase 77 U/L (45-117); Anion Gap 3 (5-15); BUN 18 mg/dL (7-18); BUN/Creat Ratio 21.5 RATIO (10-20); Calcium,Total 9.2 mg/dL (8.5-10.1); Chloride 110 mmol/L (98-107); Cholesterol 131 mg/dL (200); Creatinine, Serum 0.84 mg/dL (0.55-1.02); EST Glomerular Filtration Rate 71 mL/min (>60); Est Glom Filt Rate - Afr Amer 85 mL/min (>60); Globulin 3.4 g/dL (2.2-4.2); Glucose 85 mg/dL (74-106); High Density Lipoprotein 45 mg/dL; Potassium 4.1 mmol/L (3.5-5.1); Protein, Total 7.3 g/dL (6.4-8.2); Sodium Level 140 mmol/L (136-145); Thyroid Stim Hormone (TSH) 1.28 uIU/mL (0.358-3.74); Triglycerides 245 mg/dL; Very Low Density Lipoprotein 49 mg/dL (5-40)
== END | disposition home or self-care (01) ==
LOC: MFPLAB 14:07
PROVIDERS: PCP Family Medicine; Referring Provider Family Medicine; Visit Provider Family Medicine
DX: E55.9 Vitamin D deficiency, unspecified (principal); I10 Essential (primary) hypertension
CPT/HCPCS: 36415; 80053; 80061; 81001; 82306; 84443; 85025

== ENCOUNTER → 2024-08-03 | Outpatient (CLI) | payer MEDICARE, OTHER, SELFPAY ==
[2024-08-03 17:47] LABS: Absolute Lymphocyte Count 2.97 X10^3/uL (0.83-4.51); Absolute Neutrophil Count 2.4 X10^3/uL (2.0-7.7); Basophil# 0.03 X10^3/uL; Basophil% 0.5 % (0-1); Eosinophil# 0.15 X10^3/uL; Eosinophils% 2.5 % (0-5); Hematocrit 40.9 % (37-47); Hemoglobin 14.1 g/dL (12.0-15.0); Lymphocyte # 2.97 X10^3/ul (0.83-4.51); Lymphocyte % 49.1 % (19-41); Mean Corp Hgb Conc 34.5 g/dL (32-36); Mean Corpuscular Hgb 31.2 pg (27.0-32.0); Mean Corpuscular Volume 90.5 fL (81-99); Mean Platelet Vol. 10.1 fl (6.2-12.0); Monocyte# 0.52 X10^3/uL; Monocyte% 8.6 % (0-10); NRBC Flagged by Analyzer 0 % (0-5); Neutrophil # 2.36 X10^3/uL (2.7-7.7); Platelet Count 273 K/mm3 (150-450); RBC Distribution Width CV 13.8 % (11.6-14.6); RBC Distribution Width SD 45.9 fl (35.1-43.9); Red Blood Count 4.52 M/mm3 (4.2-5.4); White Blood Count 6.1 K/mm3 (4.4-11.0)
[2024-08-03 17:59] LABS: Vitamin D,25 Hydroxy 34.6 ng/mL
[2024-08-03 18:08] LABS: ALB/GLOB Ratio 1.2 RATIO (0.9-2.4); AST(SGOT) 27 U/L (15-37); Alanine Aminotransfer ALT/SGPT 31 U/L (13-56); Albumin, Serum 3.9 g/dL (3.2-5.0); Alkaline Phosphatase 96 U/L (45-117); Anion Gap 6 (5-15); BUN 20 mg/dL (7-18); BUN/Creat Ratio 28.7 RATIO (10-20); Calcium,Total 8.7 mg/dL (8.5-10.1); Chloride 108 mmol/L (98-107); Cholesterol 134 mg/dL (200); EST Glomerular Filtration Rate 87 mL/min (>60); Est Glom Filt Rate - Afr Amer 105 mL/min (>60); Globulin 3.3 g/dL (2.2-4.2); Glucose 102 mg/dL (74-106); High Density Lipoprotein 38 mg/dL; Magnesium 2.2 mg/dL (1.6-2.6); Potassium 3.6 mmol/L (3.5-5.1); Protein, Total 7.2 g/dL (6.4-8.2); Sodium Level 141 mmol/L (136-145); Triglycerides 639 mg/dL
== END | disposition home or self-care (01) ==
LOC: MFPLAB 16:04
PROVIDERS: PCP Family Medicine; Referring Provider Family Medicine; Visit Provider Family Medicine
DX: I10 Essential (primary) hypertension (principal); E78.00 Pure hypercholesterolemia, unspecified; E55.9 Vitamin D deficiency, unspecified
CPT/HCPCS: 36415; 80053; 80061; 82306; 83735; 84443; 85025

== ENCOUNTER → 2024-08-10 | Outpatient (CLI) | payer MEDICARE, OTHER, SELFPAY ==
[2024-08-10 08:11] LABS: Mucous, Urine 0 SEEN /hpf (<or=2+)
[2024-08-10 10:13] LABS: Color, Urine Yellow (Yellow); Glucose, Dipstick Normal (Normal); Ketone-Dipstick Negative (Negative); Leukocyte Esterase-Dipstick 500 /ul (Negative); Nitrite-Dipstick Positive (Negative); Occult Blood-Urine 10 /ul (Negative); Protein-Dipstick 15 mg/dl (Negative); Specific Gravity, Urine 1.015 (1.002-1.030); Urine Bilirubin Dipstick Negative (Negative); Urine Clarity Sl. Cloudy (Clear); Urine Urobilinogen Normal (Normal)
[2024-08-10 10:20] LABS: Bacteria 3+ /hpf (None Seen); Red Blood Cells-Urine 0-5 SEEN /hpf (0-5); Squamous Epithelial Cells - UA 0-5 SEEN /hpf (5-10); White Blood Cells 5-10 SEEN /hpf (0-5)
[2024-08-10 10:41] LABS: Cholesterol 134 mg/dL (200); High Density Lipoprotein 44 mg/dL; Triglycerides 161 mg/dL; Very Low Density Lipoprotein 32 mg/dL (5-40)
[2024-08-10 10:49] LABS: Hemoglobin A1c 5.3 % (3.8-5.6)
== END | disposition home or self-care (01) ==
LOC: MFPLAB 08:08
PROVIDERS: PCP Family Medicine; Visit Provider Family Medicine
DX: R73.09 Other abnormal glucose (principal); E78.1 Pure hyperglyceridemia; I10 Essential (primary) hypertension
CPT/HCPCS: 36415; 80061; 81001; 83036

== ENCOUNTER 2024-11-28 11:20 | Outpatient (CLI) | payer MEDICARE, OTHER, SELFPAY ==
[2024-11-28 11:25] LABS: Bacteria 0 SEEN /hpf (None Seen); Mucous, Urine 0 SEEN /hpf (<or=2+); Red Blood Cells-Urine 0 SEEN /hpf (0-5)
[2024-11-28 12:29] LABS: Color, Urine Yellow (Yellow); Glucose, Dipstick Normal (Normal); Ketone-Dipstick Negative (Negative); Leukocyte Esterase-Dipstick 25 /ul (Negative); Nitrite-Dipstick Negative (Negative); Occult Blood-Urine Negative /ul (Negative); Protein-Dipstick Negative (Negative); Specific Gravity, Urine 1.015 (1.002-1.030); Urine Bilirubin Dipstick Negative (Negative); Urine Clarity Clear (Clear); Urine Urobilinogen Normal (Normal)
[2024-11-28 12:48] LABS: Squamous Epithelial Cells - UA 0-5 SEEN /hpf (5-10); White Blood Cells 0-5 SEEN /hpf (0-5)
[2024-11-28 15:59] LABS: Absolute Lymphocyte Count 2.18 X10^3/uL (0.83-4.51); Absolute Neutrophil Count 2.1 X10^3/uL (2.0-7.7); Basophil# 0.02 X10^3/uL; Basophil% 0.4 % (0-1); Eosinophils% 2.1 % (0-5); Hematocrit 41.5 % (37-47); Hemoglobin 13.9 g/dL (12.0-15.0); Lymphocyte # 2.18 X10^3/ul (0.83-4.51); Lymphocyte % 45.8 % (19-41); Mean Corp Hgb Conc 33.5 g/dL (32-36); Mean Corpuscular Hgb 30.2 pg (27.0-32.0); Mean Corpuscular Volume 90.2 fL (81-99); Mean Platelet Vol. 9.6 fl (6.2-12.0); Monocyte# 0.35 X10^3/uL; Monocyte% 7.4 % (0-10); NRBC Flagged by Analyzer 0 % (0-5); Neutrophil % 44.1 % (47-70); Platelet Count 219 K/mm3 (150-450); RBC Distribution Width CV 13.9 % (11.6-14.6); RBC Distribution Width SD 46.3 fl (35.1-43.9); White Blood Count 4.8 K/mm3 (4.4-11.0)
[2024-11-28 16:50] LABS: ALB/GLOB Ratio 1.8 RATIO (0.9-2.4); AST(SGOT) 28 U/L (<=31); Alanine Aminotransfer ALT/SGPT 21 U/L (<=34); Albumin, Serum 4.4 g/dL (3.4-4.8); Alkaline Phosphatase 81 U/L (35-104); Anion Gap 11 (5-15); BUN 14 mg/dL (4-19); BUN/Creat Ratio 18.4 RATIO (10-20); Calcium,Total 9.5 mg/dL (7.6-11.0); Carbon Dioxide 22.2 mmol/L (21.0-32.0); Chloride 107 mmol/L (98-108); Cholesterol 128 mg/dL (<=200); Creatinine, Serum 0.74 mg/dL (0.70-1.20); EST Glomerular Filtration Rate 83 (>60); Globulin 2.5 g/dL (2.2-4.2); Glucose 88 mg/dL (70-99); High Density Lipoprotein 37 mg/dL; Low Density Lipoprotein Calc. 46 mg/dL; Potassium 4.2 mmol/L (3.3-5.1); Protein, Total 6.9 g/dL (5.9-8.4); Sodium Level 141 mmol/L (133-145); Total Bilirubin 0.43 mg/dL (0.00-1.30); Triglycerides 224 mg/dL; Very Low Density Lipoprotein 45 mg/dL (5-40); Vitamin D,25 Hydroxy 37.2 ng/mL (30-100); cholesterol:hdl ratio screen 3.42
== END 2024-11-28 23:59 | disposition home or self-care (01) ==
LOC: MFPLAB 11:21
PROVIDERS: PCP Family Medicine; Referring Provider Family Medicine; Visit Provider Family Medicine
DX: I10 Essential (primary) hypertension (principal); E78.00 Pure hypercholesterolemia, unspecified; E55.9 Vitamin D deficiency, unspecified
CPT/HCPCS: 36415; 80053; 80061; 81001; 82306; 85025

== ENCOUNTER → 2025-06-26 | Outpatient (CLI) | payer MEDICARE, OTHER, SELFPAY ==
[2025-06-26 13:10] LABS: Mucous, Urine 0 SEEN /hpf (<or=2+)
[2025-06-26 14:54] LABS: Hematocrit 43.7 % (37-47); Hemoglobin 14.9 g/dL (12.0-15.0); Immature Granulocytes Count 0.020 X10^3/uL (0.0-0.0); Mean Corp Hgb Conc 34.1 g/dL (32-36); Mean Corpuscular Volume 89.5 fL (81-99); Mean Platelet Vol. 9.5 fl (6.2-12.0); NRBC Flagged by Analyzer 0 % (0-5); Platelet Count 226 K/mm3 (150-450); RBC Distribution Width CV 13.2 % (11.6-14.6); RBC Distribution Width SD 43.4 fl (35.1-43.9); Red Blood Count 4.88 M/mm3 (4.2-5.4); White Blood Count 6.4 K/mm3 (4.4-11.0)
[2025-06-26 14:55] LABS: Color, Urine Yellow (Yellow); Glucose, Dipstick Normal (Normal); Ketone-Dipstick Negative (Negative); Leukocyte Esterase-Dipstick 500 /ul (Negative); Nitrite-Dipstick Positive (Negative); Occult Blood-Urine 10 /ul (Negative); Protein-Dipstick Negative (Negative); Specific Gravity, Urine 1.015 (1.002-1.030); Urine Bilirubin Dipstick Negative (Negative)
[2025-06-26 15:19] LABS: Red Blood Cells-Urine 0-5 SEEN /hpf (0-5); Squamous Epithelial Cells - UA 0-5 SEEN /hpf (5-10)
[2025-06-26 15:47] LABS: AST(SGOT) 28 U/L (<=31); Alanine Aminotransfer ALT/SGPT 21 U/L (<=34); Albumin, Serum 4.7 g/dL (3.4-4.8); Alkaline Phosphatase 85 U/L (35-104); Anion Gap 12 (5-15); BUN 21 mg/dL (4-19); BUN/Creat Ratio 26.7 RATIO (10-20); Calcium,Total 10.0 mg/dL (7.6-11.0); Carbon Dioxide 25.0 mmol/L (21.0-32.0); Chloride 105 mmol/L (98-108); Cholesterol 141 mg/dL (<=200); Globulin 2.8 g/dL (2.2-4.2); Glucose 89 mg/dL (70-99); Low Density Lipoprotein Calc. 67 mg/dL; Potassium 4.1 mmol/L (3.3-5.1); Triglycerides 204 mg/dL; Very Low Density Lipoprotein 41 mg/dL (5-40); cholesterol:hdl ratio screen 3.50
[2025-06-27 11:12] LABS: Vitamin D,25 Hydroxy 38.7 ng/mL (30-100)
== END | disposition home or self-care (01) ==
LOC: MTLAB 13:05
PROVIDERS: PCP Family Medicine; Referring Provider Family Medicine; Visit Provider Family Medicine
DX: R82.81 Pyuria (principal); E55.9 Vitamin D deficiency, unspecified; I10 Essential (primary) hypertension; R73.09 Other abnormal glucose; E78.00 Pure hypercholesterolemia, unspecified
CPT/HCPCS: 36415; 80053; 80061; 81001; 82306; 83036; 85025; 87077; 87086; 87088; 87186